=== PATIENT | male | born 1935 | race Caucasian/White ===

== ENCOUNTER 2021-01-02 15:14 | Emergency (ER) | payer MEDICARE, SELFPAY ==
--- NOTE | ~2021-01-02 | XR_ITS ---
EXAMINATION: XR chest 2V DATE: 01/02/2021 16:02 INDICATION: Palpitations. TECHNIQUE: Frontal and lateral views of the chest were obtained. COMPARISON: Chest single view 11/26/2008, chest CT 09/05/2007 FINDINGS: There is chronic elevation of left hemidiaphragm. A calcified left lung nodule is consisten t with old granulomatous disease. There is a heterogeneous diffuse interstitial pattern with a lower lung predominance. No pleural effusion or pneumothorax. The heart size is normal. Median sternotomy w ires and mediastinal surgical clips are seen, likely from prior coronary artery bypass grafting. IMPRESSION: 1. Worsened heterogeneous diffuse interstitial pattern in the lungs with a lower lung predominance, c onsistent with chronic interstitial lung disease and/or mild pulmonary edema. Reviewed, dictated and finalized at location A. IMPRESSION: 1. Worsened heterogeneous diffuse interstitial pattern in the lungs with a lowe r lung predominance, consistent with chronic interstitial lung disease and/or m ild pulmonary edema.
[2021-01-02 15:17] VITALS: BP 123/52; PULSE 36; RESP 18; TEMP 36.4; O2SAT 94
--- NOTE | 2021-01-02 15:19 | ECG_ITS ---
Measurements Intervals [place] Rate: 69 P: 36 IA: 204 QRS: -36 QRSD: 152 T: 33 QT: 402 QTc: 431 Interpretive Statements SINUS RHYTHM VENTRICULAR BIGEMINY LEFT AXIS DEVIATION BORDERLINE AV CONDUCTION DELAY RIGHT BUNDLE BRANCH BLOCK INFERIOR INFARCT, AGE INDETERMINATE BASELINE ARTIFACT- I, II, III, AVR, AVL, AVF ABNORMAL ECG Electronically Signed On 01-02-2021 15:51:08 CDT by Mick Jameson D.O.
[2021-01-02 15:39] LABS: Basophils Absolute Auto 0.1 K/mm3 (0.0-0.1); Basophils Percent Auto 0.8 % (0.2-1.2); Eosinophils Absolute Auto 0.4 K/mm3 (0-0.3); Eosinophils Percent Auto 5.8 % (0-4.4); Hematocrit 45.3 % (42.0-52.0); Hemoglobin 14.7 g/dL (14.0-18.0); Immature Granulocyte Absolute 0.02 K/mm3 (0.00-0.031); Immature Granulocyte Percent A 0.3 % (0-0.5); Lymphocytes Absolute Auto 1.66 K/mm3 (0.9-3.2); Lymphocytes Percent Auto 22.6 % (18.3-44.2); Mean Corpuscular HGB Conc 32.5 g/dl (32-36); Mean Corpuscular Hemoglobin 32.2 pg (26-34); Mean Corpuscular Volume 99.3 fl (80-100); Mean Platelet Volume 11.3 fl (7.4-10.4); Monocytes Absolute Auto 0.8 K/mm3 (0.1-0.6); Monocytes Percent Auto 10.2 % (2.6-8.5); Neutrophils Absolute Auto 4.4 K/mm3 (1.3-6.7); Neutrophils Percent Auto 60.3 % (45.5-73.1); Platelet Count Result 150 k/mm3 (150-375); Red Blood Count 4.56 M/mm3 (4.6-6.20); Red Cell Distribution Width 13.1 % (11.5-14.5); White Blood Count 7.4 K/mm3 (4.5-10.0)
[2021-01-02 15:49] LABS: Prothrombin Time 13.5 Seconds (11.1-14.7)
[2021-01-02 15:50] LABS: Partial Thromboplastin Time 30.4 SECONDS (22.3-36.8)
--- NOTE | 2021-01-02 15:50 | ED.ARRPALP ---
HPI - Arrhythmia/Palpitations General Chief Complaint: Arrhythmia/Palpitations Stated Complaint: bradycardia Time Seen by Provider: 01/02/21 15:18 History of Present Illness HPI narrative: Patient is an 85-year-old male who presents ER with a low heart rate. Patient reports that there are 2 people who came and checked his vital signs at his home and told him his heart rate was in the 30s and that they recommended that he come to the hospital so they called an ambulance and it picked him up and took him here. He has no symptoms at this time. Reports he is able to ambulate about his home as he typically does. Reports he was at [facility] twice earlier this week for the same issue and was discharged home. He is unsure what the diagnosis is. He has no chest pain or chest pressure. He is without shortness of breath. He has a fire investigator at [facility] by the name of Dr. Melgar.i Related Data Allergies Allergy/AdvReac Type Severity Reaction Status Date / Time zolpidem Allergy Unknown Verified 01/15/09 15:36 1. AMBIEN Allergy Unknown Uncoded 03/26/03 14:54 1. NKFA Allergy Unknown Uncoded 03/26/03 14:54 Review of Systems Review of Systems: All systems reviewed & are unremarkable except as noted in HPI and below Constitutional: Constitutional: Denies chills, Denies fever(s) and Reports weakness (chronic) ENT: Denies nasal congestion and Denies sore throat Cardiovascular: Cardiovascular: Denies chest pain, Denies rapid heart rate and Denies radiating jaw, neck or arm pain Respiratory: Respiratory: Denies cough and Reports dyspnea (chronic) Gastrointestinal: Gastrointestinal: Denies abdominal pain, Denies nausea and Denies vomiting Genitourinary: Genitourinary: Denies dysuria and Denies urinary frequency [facility] Past Medical History Medical History (Updated 01/02/21 @ 18:10 by Zachery Max MD) Cataracts, bilateral History of gout History of myocardial infarction Hypercholesterolemia Hypertension Surgical History Surgical History (Updated 01/02/21 @ 15:56 by Zachery Max MD) History of coronary artery bypass graft Family History Family History (Updated 05/30/14 @ 07:13 by DOCTOR UNKNOWN) Mother Family history of malignant neoplasm Father Family history of coronary artery disease Social History Social History Smoking status: Never smoker Alcohol intake: never Exam Narrative: Exam Narrative: GENERAL: Chronically ill-appearing, well-nourished, and in no acute distress. HEAD: Normocephalic, atraumatic. EYES: PERRL and EOMI. CHEST: Clear to auscultation. No respiratory distress. HEART: Bradycardic and regular. Normal peripheral pulses. ABDOMEN: Soft, nontender, nondistended. EXTREMITIES: Normal range of motion. 1+ edema. SKIN: Warm, dry, no rash. NEURO: Alert and oriented x3. PSYCH: Normal mood and affect. Course Course Emergency Course: Patient up and ambulatory in the ER without issue. He even was walking without his oxygen without issue. I have spoke with Dr. Benoit who is on-call for patient's fire investigator. He is not concerned about the bigeminy especially given the fact that it sounds like he has been having this chronically. He does not currently have access to labs. Patient should contact his fire investigator in 3 days to schedule follow-up. I have educated patient that should he have any additional issues he needs to go to [facility] where his fire investigator is located in where he receives his care as they have all of the information related to his medical issues. He is aware that he is a poor historian and that we have not seen him before. Vital Signs Vital signs: Vital Signs Temperature 97.6 F 01/02/21 15:17 Pulse Rate 36 L 01/02/21 15:17 Respiratory Rate 18 01/02/21 15:17 Blood Pressure 123/52 L 01/02/21 15:17 Pulse Oximetry 94 01/02/21 15:17 Temperature 97.6 F 01/02/21 15:17 Pulse Rate 67 01/02/21 16:21 Respiratory Rate 18 01/02/21 1
[2021-01-02 15:54] LABS: Anion Gap 6 mmol/L (8-16); Blood Urea Nitrogen 70 mg/dL (9-20); Calcium 9.1 mg/dL (8.4-10.2); Carbon Dioxide 33 mmol/L (22-30); Chloride 97 mmol/L (98-107); Estimated CRCL calculation 28 ml/min; Estimated Glomerular Filt Rate 34; Glucose 118 mg/dL (75-110); Magnesium 2.5 mg/dL (1.6-2.3); Potassium 4.7 mmol/L (3.4-5.0); Sodium 136 mmol/L (137-145)
[2021-01-02 16:21] VITALS: BP 142/51; PULSE 67; RESP 18; O2SAT 100
[2021-01-02 17:38] LABS: NT Pro B Type Natriuretic Pept 960 PG/ML (5-100)
== END 2021-01-02 18:21 | disposition home or self-care (01) ==
PROVIDERS: Emergency Provider Emergency Medicine; PCP Internal Medicine
DX: R00.8 Other abnormalities of heart beat (principal); I25.2 Old myocardial infarction; M10.9 Gout, unspecified; E78.00 Pure hypercholesterolemia, unspecified; I10 Essential (primary) hypertension; Z95.1 Presence of aortocoronary bypass graft; I45.10 Unspecified right bundle-branch block; R94.31 Abnormal electrocardiogram [ECG] [EKG]
CPT/HCPCS: 36415; 71046; 80048; 83735; 83880; 85025; 85610; 85730; 93005; 99283